=== PATIENT | female | born 1940 | race Caucasian/White ===

== ENCOUNTER 2019-05-24 09:16 | Observation (INO) | payer MEDICARE, SELFPAY ==
[2019-05-24] VITALS (9 sets, daily range): BP systolic 115–153; BP diastolic 58–85; PULSE 71–88; RESP 14–16; TEMP 36.2–37.2; O2SAT 96–99; BMI 22.6; BMI 21.2
--- NOTE | 2019-05-24 09:19 | EKG12_ITS ---
Test Reason : SYNCOPE Blood Pressure : / mmHG Vent. Rate : 082 BPM Atrial Rate : 082 BPM P-R Int : 180 ms QRS Dur : 082 ms QT Int : 418 ms P-R-T Axes : 080 040 063 degrees QTc Int : 488 ms Normal sinus rhythm Right atrial enlargement Borderline ECG Confirmed by ARI BADILLO, MIKE ([id number]), editor & co founder JOSE C GALLEGOS ([id number]) on 05/26/2019 10:03:26 AM Referred By: Carole Paredes Confirmed By:MIKE CHAPMAN MD
--- NOTE | 2019-05-24 09:20 | ED.VIS.GEN ---
History of Present Illness Chief Complaint: Syncope Informant: Patient Onset: Today Narrative: Patient presents after syncopal event. Patient states that she was sitting on a barstool eating breakfast. After she finished eating she felt very weak and dizzy. She fainted and fell off the stool. She states she woke up just after hitting the floor. Her found her lying on the floor. EMS notes patient to be hypotensive on their arrival. She received IV fluids in route and blood pressure is improving. Patient denies chest pain or palpitations. Patient states that she does feel like she is itching. She denies eating new foods. Past Medical History - Allergies and Home Meds Allergies/Adverse Reactions: Allergies No Known Allergies Allergy (Verified 05/24/19 09:20) Primary Care Physician: Jevon Hubbard DO [Primary Care Provider] - Lives: Spouse/ Significant Other Review of Systems General: Denies: Chills, Fever Eyes: Denies: Visual changes - bilaterally ENT: Denies: Bilateral ear pain Cardiovascular: Denies: Chest pain, Palpitations Respiratory: Denies: Dyspnea, Cough Gastrointestinal: Denies: Abdominal pain, Nausea, Vomiting, Diarrhea Genitourinary: Denies: Dysuria Neurological: Reports: Weakness - Generalized weakness Hematologic: Denies: Easy bruising Allergy: Denies: Uticaria Physical Exam Vital Signs/Narrative: Vital Signs Temp Pulse Resp BP Pulse Ox 05/24/19 09:17 97.1 F L 88 16 121/63 H 99 Inital Vital Signs reviewed: Yes General: Well nourished Head: Normocephalic ENT: Moist mucous membranes Neck: Supple Cardiovascular: Regular rate, Regular rhythm Respiratory: No distress, CTA bilaterally Abdomen: Soft, Nontender Extremities: Nontender Skin: - - Patient has diffuse erythema over her skin. No focal urticarial lesions noted. Neurological: Alert, Oriented x3 Psychological: Normal affect Diagnostic/Tx/Re-eval Laboratory Results 05/24/19 05/24/19 09:25 09:25 WBC 3.7 L RBC 4.23 Hgb 14.3 Hct 42.9 MCV 101.4 H MCH 33.8 H MCHC 33.3 RDW Std Deviation 44.8 H RDW Coeff of Dimas 12.0 Plt Count 204 MPV 9.6 Immature Gran % (Auto) 0.300 Neut % (Auto) 50.8 Lymph % (Auto) 39.6 Swift % (Auto) 3.7 Eos % (Auto) 4.5 Baso % (Auto) 1.1 H Absolute Neuts (auto) 1.9 L Absolute Lymphs (auto) 1.48 Nucleated RBC % 0 Sodium 143 Potassium 3.6 Chloride 110 H Carbon Dioxide 26.0 Anion Gap 7 BUN 21 H Creatinine 0.77 Estim Creat Clear Calc 42.39 Est GFR (MDRD) Af Amer 93 Est GFR (MDRD) Non-Af 77 BUN/Creatinine Ratio 27.2 H Glucose 150 H Calcium 9.1 Troponin I < 0.015 - EKG Initial EKG Interpretation: Sinus Rhythm - Sinus 82 with no acute ischemia. - Medical Decision Making Patient does have evidence of possible allergic reaction with diffuse skin erythema. She denies throat tightness. She is given a small dose of Benadryl and steroids along with Pepcid. On repeat evaluation erythema is resolved. Test results are discussed with patient and at bedside. She states her syncopal episode occurred shortly to taking Advil, but she has taken Advil in the past without any difficulty. I am unable to tell if it is related. I recommended observation overnight for cardiac monitoring to ensure no cardiac rhythm problems caused her syncopal episode. I will speak with the hospitalist. ED Disposition - Plan for ED Patient: Disposition: Acute Care Hospital [facility] Diagnosis: Syncope, Allergic reaction Referrals: Jevon Hubbard DO [Primary Care Provider] -
[2019-05-24] MEDS: MethylPREDNISolone 125 MG/2 ML Vial IV (09:28)
[2019-05-24] MEDS: DiphenhydrAMINE 50 MG/ML Syringe 12.5 MG IV (09:28)
[2019-05-24] MEDS: 0.9% Normal Saline 1,000 ML 150 ML IV ×3 (09:29→21:23)
[2019-05-24 09:33] LABS: Absolute Lymphocyte Count 1.48 X10^3/uL (0.83-4.51); Absolute Neutrophil Count 1.9 X10^3/uL (2.0-7.7); Basophil# 0.04 X10^3/uL; Basophil% 1.1 % (0-1); Eosinophil# 0.17 X10^3/uL; Eosinophils% 4.5 % (0-5); Hematocrit 42.9 % (37-47); Hemoglobin 14.3 g/dL (12.0-15.0); Lymphocyte # 1.48 X10^3/ul (4.0); Lymphocyte % 39.6 % (19-41); Mean Corp Hgb Conc 33.3 g/dL (32-36); Mean Corpuscular Hgb 33.8 pg (27.0-32.0); Mean Corpuscular Volume 101.4 fL (81-99); Mean Platelet Vol. 9.6 fl (6.2-12.0); Monocyte# 0.14 X10^3/uL; Monocyte% 3.7 % (0-10); NRBC Flagged by Analyzer 0 % (0-5); Neutrophil % 50.8 % (47-70); Platelet Count 204 K/mm3 (150-450); RBC Distribution Width SD 44.8 fl (35.1-43.9); Red Blood Count 4.23 M/mm3 (4.2-5.4); White Blood Count 3.7 K/mm3 (4.4-11.0)
[2019-05-24] MEDS: Famotidine 200 MG/20 ML MDV 20 MG in 0.9% Normal Saline (Pres. free 8 ML 300 MG IV (09:45)
[2019-05-24 09:51] LABS: Anion Gap 7 (5-15); BUN 21 mg/dL (7-18); BUN/Creat Ratio 27.2 RATIO (10-20); Calcium,Total 9.1 mg/dL (8.5-10.1); Chloride 110 mmol/L (98-107); Creatinine, Serum 0.77 mg/dL (0.55-1.02); EST Glomerular Filtration Rate 77 mL/min (>60); Est Glom Filt Rate - Afr Amer 93 mL/min (>60); Estimated Creatinine Clearance 42.39 ml/min; Glucose 150 mg/dL (74-106); Potassium 3.6 mmol/L (3.5-5.1); Sodium Level 143 mmol/L (136-145)
--- NOTE | 2019-05-24 10:41 | HP.PCM_ITS ---
History of Present Illness Date of Admission: 05/24/19 Chief Complaint: syncope The patient is a 78 year old F with no significant past medical history. She was admitted through the ED on 05/24/2019 with a complaint of syncope. Patient states she was standing at the counter in her kitchen and then she just slid off her stool and fell to the ground. She blacked out and states was only for about a couple of minutes. She came on spontaneously and does not think she hit her head. She still feeling dizzy just before she blacked out. She denied any assisted urinary or fecal incontinence and states there were no jerking movements witnessed by her who subsequently found her on the floor. Syncopal episode was however unwitnessed. She denied any fever chills or palpitations and seizures had such as fainting episodes in the past before. Review of stems otherwise negative. She denied any chest pain no recent long distance travel and has never had any DVT or PE before. She states the squad was called and when the squad got there, she was found to be hypotensive with blood pressure in the 70s systolic. On admission in the ED, vitals were stable with blood pressures 153/79. Initial troponin was negative and CBC and BMP were unremarkable. EKG showed normal sinus rhythm with rate of 82. She has been admitted to be managed for syncope. 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 Denies: Chest Pain, Chest Pressure, Chest Tightness, Edema, Heaviness, Orthopnea, Palpitations, Paroxysmal Noc. Dyspnea Respiratory: Denies: Cough, Shortness of Breath, Shortness of breath at rest, Shortness of breath upon exertion, Sputum production Gastrointestinal: Denies: Abdominal Pain, Nausea, Vomiting Genitourinary: Denies: Dysuria Musculoskeletal: Denies: Joint Pain, Joint Tenderness Skin: Denies: Rash, Wounds Neurological: Denies: Confusion, Focal weakness, Headaches, Numbness, Tingling, Tremor, Seizures Psychiatric: Denies: Anxiety, Depression, Homicidal Ideations, Suicidal Ideat ions Hematologic/ Lymphatic: Denies: Easy Bruising, Easy Bleeding VTE Information - Inpt Only VTE Present on Admission: No VTE Pharm Prophylaxis ordered?: Yes Patient Problems: Active and Suspected Problems Syncope (Acute) Allergic reaction (Acute) - Physical Exam Vitals/I&O's: Vital Signs Temp Pulse Resp BP Pulse Ox 97.1 F L 88 16 121/63 H 99 05/24/19 09:17 05/24/19 09:17 05/24/19 09:17 05/24/19 09:17 05/24/19 09:17 Oxygen Delivery Method Room Air Weight: 136 lb 3.931 oz Body Mass Index (BMI) 22.6 Intake and Output for Last 24 Hours 05/22/19 05/23/19 05/24/19 23:59 23:59 23:59 Intake Total Balance General: Alert, Oriented x3, Cooperative, No apparent distress HEENT: Atraumatic, PERRLA, EOMI, Normocephalic Oral: Dry Mucosa Neck: Supple, No JVD, Negative Carotid Bruits Lungs: Clear to auscultation, Normal air movement, No rhonchi, No wheeze, No rales Cardiovascular: Regular rate, Regular Rhythm, Normal S1, Normal S2, No murmurs Abdomen: Bowel Sounds Present, Soft, Non Tender Extremities: No edema, Capillary Refill Less than 3 Seconds Skin: No rashes, No breakdown Musculoskeletal: No Tenderness to Palpation of Joints or Extremities Lymphatic: No Cervical, Supraclavicular, or Inguinal Adenopathy Neurological: Cranial nerves II-XII grossly intact, Neuro grossly intact, Motor Exam 5/5 strength throughout Psych/Mental Status: Normal Affect, Appropriate, Alert and oriented to time, place, person, mood and affect Laboratory Results 05/24/19 09:25: WBC 3.7 L, RBC 4.23, Hgb 14.3, Hct 42.9, MCV 101.4 H, MCH 33.8 H , MCHC 33.3, RDW Std Deviation 44.8 H, RDW Coeff of Dimas 12.0, Plt Count 204, MPV 9.6, Immature Gran % (Auto) 0.300, Neut % (Auto) 50.8, Lymph % (Auto) 39.6, [place] % (Auto) 3.7, Eos % (Auto) 4.5, Baso % (Auto) 1.1 H, Absolute Neuts (auto) 1.9 L, Absolute Lymphs (auto) 1.48, Nucleated RBC % 0 05/24/19 09:25: Sodium 143, Potassium 3.6, Chloride 110 H, Carbon Dioxide 26.0, Anion Gap 7, BUN 21 H, Creatinine 0.77, Estim Creat Clear Calc 42.39, Est GFR (MDRD) Af Amer 93, Est GFR (MDRD) Non-Af 77, BUN/Creatinine Ratio 27.2 H, Glucose 150 H, Calcium 9.1, Troponin I < 0.015 Current Medications Sodium Chloride () 1,000 mls @ 150 mls/hr IV .[id number] [facility] Last Admin: 05/24/19 09:29 Dose: 150 mls/hr Documented by: Assessment/Plan All Active Problems Syncope (Acute) Allergic reaction (Acute) 78 y/o admitted with a complaint of syncope 1. Syncope, likely vasovagal * States she had been sitting at her encounter for about 15 minutes and felt dizzy and slid off a chair and blacked out for about 2 minutes. She came on spontaneously. She was found to be hypotensive. She had not been having any diarrhea vomiting and says she has been eating and drinking well. * Admit to PCU with telemetry. EKG showed no acute ST changes and troponins have been negative. * Check orthostatics. * Hydrated with IV fluid normal saline at 150 cc/h. * order 2D echo. * fall precautions * PT/OT consult * DVT prophylaxis: lovenox CODE STATUS: Full code * Patient counseled extensively about different types of CODE STATUS including full code, DNR CCA and DNR CCA. * Patient elects to be full code. * Total [id number] time 16 minutes. Code Visit OBSV E&M: 91202 Initial observation care L2
[2019-05-25] VITALS (7 sets, daily range): BP systolic 119–132; BP diastolic 60–67; PULSE 63–74; RESP 16; TEMP 36.9–37.3; O2SAT 96–100
[2019-05-25 06:36] LABS: Absolute Lymphocyte Count 1.07 X10^3/uL (0.83-4.51); Basophil# 0.03 X10^3/uL; Basophil% 0.4 % (0-1); Eosinophil# 0.01 X10^3/uL; Eosinophils% 0.1 % (0-5); Hematocrit 35.7 % (37-47); Hemoglobin 11.7 g/dL (12.0-15.0); Lymphocyte # 1.07 X10^3/ul (4.0); Lymphocyte % 13.5 % (19-41); Mean Corp Hgb Conc 32.8 g/dL (32-36); Mean Corpuscular Hgb 33.6 pg (27.0-32.0); Mean Corpuscular Volume 102.6 fL (81-99); Monocyte# 0.73 X10^3/uL; Monocyte% 9.2 % (0-10); NRBC Flagged by Analyzer 0 % (0-5); Neutrophil # 6.04 X10^3/uL (2.7-7.7); Neutrophil % 76.4 % (47-70); Platelet Count 171 K/mm3 (150-450); RBC Distribution Width SD 44.9 fl (35.1-43.9); Red Blood Count 3.48 M/mm3 (4.2-5.4); White Blood Count 7.9 K/mm3 (4.4-11.0)
[2019-05-25 06:59] LABS: Anion Gap 4 (5-15); BUN 15 mg/dL (7-18); BUN/Creat Ratio 27.6 RATIO (10-20); Calcium,Total 8.2 mg/dL (8.5-10.1); Chloride 116 mmol/L (98-107); Creatinine, Serum 0.54 mg/dL (0.55-1.02); EST Glomerular Filtration Rate 115 mL/min (>60); Est Glom Filt Rate - Afr Amer 139 mL/min (>60); Estimated Creatinine Clearance 42.39 ml/min; Glucose 92 mg/dL (74-106); Potassium 3.5 mmol/L (3.5-5.1); Sodium Level 145 mmol/L (136-145)
[2019-05-25] MEDS: Enoxaparin 40 MG/0.4 ML Syringe SC (08:37)
--- NOTE | 2019-05-25 10:38 | DCINST_ITS ---
- Discharge Diagnoses Current Active Problems: Current Active and Chronic Problems Syncope (Acute) Allergic reaction (Acute) You will use the following diet at home:: Regular Your food should be the consistency of: Regular Discharge Activity: Return to Normal Activity Weight Bearing Status: Weight bearing as tolerated Call your doctor if you observe: Fever of 101 or Higher, Coldness, Increased Pain, Change in Color, Inability to urinate, Inability to have a bowel movement, Using more than one pad per hour, Shortness of breath, Dizziness, Fainting spells, Swelling in the ankles, Chest pain, Prolonged hiccoughing, Increased palpitations (irregular heartbeat) Additional Instructions: The pateint might need ECHO as outpatient if she gets near syncope, syncope symtoms. Allergies/Adverse Reactions: Allergies No Known Allergies Allergy (Verified 05/24/19 09:20) Medications to take at Discharge NK 05/24/19 Primary Care Physician: Jevon Hubbard DO [Primary Care Provider] - Please follow up with your Primary Care Physician in: in 1 week Test Results: Test results from this visit will be discussed in further detail at your follow- up appointment, if applicable.
--- NOTE | 2019-05-25 10:40 | DS.PCM_ITS ---
Discharge Date and Diagnosis - Problem List Patient Problems: Active and Suspected Problems Syncope (Acute) Allergic reaction (Acute) Date of Admission: 05/24/19 Date of Discharge: 05/25/19 - Primary Discharge Diagnosis Active and Suspected Problems Syncope (Acute) Allergic reaction (Acute) Hospital Course and Treatment Summary of Care Provided: The patient is a 78 year old F with no significant medical history was admitted with brief episode of syncope probably 1 minute with the dizziness after she had breakfast and Advil for diffuse skin erythema probably allergic reaction. Since letter from the stool. She was admitted in PCU. EKG shows normal sinus rhythm with no acute ST-T changes. Serial troponin enzymes were negative. Orthostatic vitals were negative. Blood pressure 131/61. Heart rate 73/min. She was treated with IV fluid normal saline at 150 mL per hour. 2D echo was ordered. Patient has concerned that it will not be covered as she is admitted under observation. Her heart and lung exam are normal. Does not have prior cardiac or pulmonary disease. 2D echo was canceled. Was advised to have echo an outpatient PCP in 1 to 2 weeks for follow-up. [] Patient is discharged home. Discharge medication reconciliation done. Discharge follow-up instructions completed. Discharge process discussed with the patient and all questions were answered to patient's satisfaction.. Patient Problems: Active and Suspected Problems Syncope (Acute) Allergic reaction (Acute) Subjective: She was admitted yesterday with brief episode of witnessed syncope about 1 minute. She had breakfast and then she felt dizzy lightheaded and suddenly slid down from the stool. She felt dizzy when she woke up. Earlier, he also took ibuprofen for probably allergic reaction with diffuse skin erythema and she had syncopal episode shortly after that. She had been well in the past without any significant side effect. - Physical Exam Vitals/I&O's: Vital Signs Temp Pulse Resp BP Pulse Ox 99.2 F H 73 16 131/61 H 100 05/25/19 08:36 05/25/19 08:36 05/25/19 08:36 05/25/19 08:36 05/25/19 08:36 Oxygen Delivery Method Room Air Weight: 127 lb 3.307 oz Body Mass Index (BMI) 21.2 Orthostatic Vital Signs Start: 05/24/19 15:52 Freq: q24h Status: Active Protocol: Activity Type Activity Date Activity User E-Sign Co-Sign Detail Recorded Client Recorded Date Recorded By Document 05/25/19 03:40 [id number] 05/25/19 03:50 05/25/19 03:40 Orthostatic Vitals Standing -Blood Pressure (90/60-120/80 mm Hg) 132/67 H -Extremity Use Left Arm -Pulse Rate (60-100 beats/min) 74 Sitting -Blood Pressure (90/60-120/80 mm Hg) 119/67 -Extremity Use Left Arm -Pulse Rate (60-100 beats/min) 66 Lying -Blood Pressure (90/60-120/80 mm Hg) 125/60 H -Extremity Use Left Arm -Pulse Rate (60-100 beats/min) 72 Intake and Output for Last 24 Hours 05/23/19 05/24/19 05/25/19 23:59 23:59 23:59 Intake Total 2282.5 / 2282.5 1047.5 / 1047.5 Balance 2282.5 / 2282.5 1047.5 / 1047.5 General: Alert, Oriented x3, Cooperative HEENT: Atraumatic, PERRLA, EOMI, Normocephalic Neck: Supple, No JVD, Negative Carotid Bruits Lungs: Clear to auscultation, Normal air movement, No rhonchi, No wheeze, No rales Cardiovascular: Regular rate, Regular Rhythm, Normal S1, Normal S2, No murmurs Abdomen: Bowel Sounds Present, Soft, Non Tender, Non-Distended Extremities: No edema, Capillary Refill Less than 3 Seconds Skin: No rashes, No breakdown Musculoskeletal: No Tenderness to Palpation of Joints or Extremities, Arthritic Changes Neurological: Cranial nerves II-XII grossly intact, Neuro grossly intact Psych/Mental Status: Normal Affect, Appropriate Laboratory Results 05/24/19 12:55: Troponin I < 0.015 05/24/19 16:15: Troponin I < 0.015 05/24/19 18:48: Troponin I < 0.015 05/25/19 06:24: WBC 7.9, RBC 3.48 L, Hgb 11.7 L, Hct 35.7 L, MCV 102.6 H, MCH 33.6 H, MCHC 32.8, RDW Std Deviation 44.9 H, RDW Coeff of Dimas 12.0, Plt Count 171, MPV 10.0, Immature Gran % (Auto) 0.400, Neut % (Auto) 76.4 H, Lymph % (Auto) 13.5 L, [place] % (Auto) 9.2, Eos % (Auto) 0.1, Baso % (Auto) 0.4, Absolute Neuts (auto) 6.0, Absolute Lymphs (auto) 1.07, Nucleated RBC % 0 05/25/19 06:24: Sodium 145, Potassium 3.5, Chloride 116 H, Carbon Dioxide 25.0, Anion Gap 4 L, BUN 15, Creatinine 0.54 L, Estim Creat Clear Calc 42.39, Est GFR (MDRD) Af Amer 139, Est GFR (MDRD) Non-Af 115, BUN/Creatinine Ratio 27.6 H, Glucose 92, Calcium 8.2 L Current Medications Dextrose (D50w Syringe) 0 gm IV X1 PRN; Protocol PRN Reason: Hypoglycemia Enoxaparin Sodium (Lovenox) 40 mg SC DAILY RANDY Last Admin: 05/25/19 08:37 Dose: 40 mg Documented by: Glucagon () 1 mg IM .X1 PRN PRN Reason: Hypoglycemia Sodium Chloride () 250 mls @ 15 mls/hr IV .[id number] PRN PRN Reason: Saline Flush Sodium Chloride () 250 mls @ 15 mls/hr IV .[id number] PRN PRN Reason: Additional IVPB Infusion Ondansetron HCl (Zofran) 4 mg IV Q8H PRN PRN PRN Reason: NAUSEA/VOMITING Sodium Chloride () 10 - 40 ml IV UD PRN PRN Reason: SALINE FLUSH Discharge Activity: Return to Normal Activity Weight Bearing Status: Weight bearing as tolerated Call your doctor if you observe: Fever of 101 or Higher, Coldness, Increased Pain, Change in Color, Inability to urinate, Inability to have a bowel movement, Using more than one pad per hour, Shortness of breath, Dizziness, Fainting spells, Swelling in the ankles, Chest pain, Prolonged hiccoughing, Increased palpitations (irregular heartbeat) Home Medications: Medications to take at Discharge NK 05/24/19 Primary Care Physician: Jevon Hubbard DO [Primary Care Provider] - Please follow up with your Primary Care Physician in: in 1 week Medical Necessity - Tobacco Use Smoking Status: Former smoker Meaningful Use Info Meaningful Use Diagnoses (Choose all that apply): None applicable Code Visit OBSV E&M: 35200 Observation care discharge
--- NOTE | 2019-05-25 10:47 | PHA.DC.MR ---
Pharmacy Service has performed discharge medication reconciliation for this patient. Home Medications NK 05/24/19 - PT NOT TAKING ANY MEDICATIONS AT HOME The patient's discharge medication list was reviewed for discrepancies and discrepancies were resolved.
--- NOTE | 2019-05-25 11:54 | CASEMGMT ---
Per Dr. Tovar, pt is refusing ECHO because she is afraid it won't be paid for and he states that pt has questions regarding insurance at this time. This RN CM to room at this time. Pt states she is upset that she was not made an inpatient and she states that no one in the ED told her that she was an outpatient. Pt has a CMS inpt vs outpt informational booklet at bedside and then this RN CM reference it, she states that she was just given that. Pt states that this RN CM should just make her an inpt and this RN CM informed her that she does not meet Inpt criteria at this time, voices understanding. This RN CM offered apologies several times to pt and pt states every time, 'well, it's too late now.' Pt then states that she was informed that she would be observed overnight and pt states 'I didn't fully know what that meant.' This RN CM advised pt that this RN CM would f/u on this and pt was also provided with patient advocate contact info at this time. Pt states 'I just want to get out of here as quick as possible, I probably wouldn't have even stayed if somebody would have thoroughly explained I was outpt.' Supriya REYES aware that pt ready for discharge and that on way. Susan, lead CM, updated at this time, voices understanding. Rowdy REYES CM
== END 2019-05-25 10:39 | disposition home or self-care (01) ==
LOC: ED 10:39 → PCU 14:02
PROVIDERS: Admitting Provider Student in an Organized Health Care Education/Training Program; Emergency Provider Emergency Medicine; Family Provider Student in an Organized Health Care Education/Training Program; PCP Student in an Organized Health Care Education/Training Program; Referring Provider Student in an Organized Health Care Education/Training Program; Visit Provider Internal Medicine
DX: R55 Syncope and collapse (principal); T78.49XA Other allergy, initial encounter; X58.XXXA Exposure to other specified factors, initial encounter
CPT/HCPCS: 36415; 80048; 84484; 85025; 93005; 96361; 96372; 96374; 96375; 99218; 99285; J7030; G0378; J3490